=== PATIENT | female | born 1995 | race Hispanic/Latino ===

== ENCOUNTER 2018-01-09 17:06 | Emergency (ER) | payer OTHER ==
[~2018-01-09] VITALS: Ht 152.4 cm; Wt 81.6 kg
== END 2018-01-09 18:45 | disposition home or self-care (01) ==
LOC: FSED 17:06
DX: S00.531A Contusion of lip, initial encounter (principal); M54.6 Pain in thoracic spine; V43.52XA Car driver injured in collision with other type car in traffic accident, initial encounter; Y92.488 Other paved roadways as the place of occurrence of the external cause
CPT/HCPCS: 99283

== ENCOUNTER 2024-11-26 12:45 | Emergency (ER) | payer BC, OTHER ==
[~2024-11-26] VITALS: Ht 152.4 cm; Wt 106.8 kg
[2024-11-26] MEDS: ONDANSETRON HCL INJ 2MG/ML 2ML 2 MG/ML VIAL IV STA (13:14)
[2024-11-26] MEDS: SODIUM CHLORIDE 0.9% 1000ML 1,000 ML IV ONE (13:14)
[2024-11-26] MEDS: KETOROLAC TROMETHAMINE 30 MG/ML VIAL IV STA (13:14)
[2024-11-26] MEDS ORDERED: CEPHALEXIN500 MG PO (14:29)
[2024-11-26] MEDS ORDERED: PYRIDIUM100 MG PO (14:30)
[2024-11-26 14:43] VITALS: PULSE 56; RESP 16; TEMP 97.9; O2SAT 99
== END 2024-11-26 14:49 | disposition home or self-care (01) ==
LOC: FSED 12:50
DX: R31.9 Hematuria, unspecified (principal); N39.0 Urinary tract infection, site not specified; R10.30 Lower abdominal pain, unspecified; M54.50 Low back pain, unspecified; R11.2 Nausea with vomiting, unspecified; R16.0 Hepatomegaly, not elsewhere classified; K76.0 Fatty (change of) liver, not elsewhere classified
CPT/HCPCS: 74176; 80053; 81003; 81025; 85025; 96374; 96375; 99284; J0696; J1885; J2405; J7030